=== PATIENT | female | born 1955 | race Caucasian/White ===

== ENCOUNTER 2020-02-29 14:45 | Day surgery (SDC) | payer BC ==
[~2020-02-29 14:45] MED LIST: ceFAZolin 2 GM/D5W 50 ML IV BAG (J0690 PER 500MG) As Ordered ONE
[2020-02-29] MEDS ORDERED: fentaNYL 250 MCG/5 ML INJECTION (J3010) As Ordered ONE (18:34)
[2020-02-29] MEDS ORDERED: MIDAZOLAM INJ 2MG/2ML VIAL (J2250 PER 1MG) As Ordered ONE (18:34)
[2020-02-29] MEDS ORDERED: LIDOCAINE 2% 100MG/5ML SDV (FOR ANES.) As Ordered ONE (18:34)
[2020-02-29] MEDS ORDERED: ROCURONIUM BROMIDE 50 MG/5 ML VIAL As Ordered ONE (18:34)
[2020-02-29] MEDS ORDERED: propofoL 200 MG/20 ML VIAL As Ordered ONE (18:34)
[2020-02-29] MEDS ORDERED: BUPIVACAINE HCL 0.5% 30 ML VIAL As Ordered ONE (18:51)
[2020-02-29] MEDS ORDERED: ONDANSETRON 4MG/2ML VIAL As Ordered ONE (20:06)
[2020-02-29] MEDS ORDERED: KETOROLAC 60MG 2ML VIAL As Ordered ONE (20:06)
[2020-02-29] MEDS ORDERED: dexameTHASONE 4 MG/ML 1ML VIAL (J1100 PER 1MG) As Ordered ONE (20:06)
[2020-02-29] MEDS ORDERED: ACETAMINOPHEN 1000MG 100ML IV BTL (OFIRMEV) (J0131 PER 10MG) As Ordered ONE (20:06)
[2020-02-29] MEDS ORDERED: fentaNYL 100 MCG/2 ML INJECTION (J3010) As Ordered ONE (22:07)
[2020-02-29] MEDS ORDERED: SUGAMMADEX SODIUM 500 MG/5 ML VIAL (BRIDION) As Ordered ONE (22:15)
[2020-02-29] MEDS ORDERED: ceFAZolin 2 GM/D5W 50 ML IV BAG (J0690 PER 500MG) As Ordered ONE (22:52)
[2020-02-29] MEDS ORDERED: DESFLURANE 240 ML INHALANT As Ordered ONE (22:58)
[2020-03-01] MEDS ORDERED: ONDANSETRON 4MG/2ML VIAL ONE (01:08)
[2020-03-01] MEDS ORDERED: fentaNYL 100 MCG/2 ML INJECTION (J3010) As Ordered ONE (01:08)
[2020-03-01] MEDS ORDERED: fentaNYL 100 MCG/2 ML INJECTION (J3010) ONE (01:08)
[2020-03-01] MEDS ORDERED: ONDANSETRON 4MG/2ML VIAL As Ordered ONE (01:55)
[2020-03-01] MEDS ORDERED: NORCO, ANEXSIA 5/325MG TABLET (HYDROcodone/ACETAMINOPHEN) As Ordered ONE ×3 (03:43→08:16)
[2020-03-01] MEDS ORDERED: NORCO, ANEXSIA 5/325MG TABLET (HYDROcodone/ACETAMINOPHEN) ONE (03:43)
[2020-03-01] MEDS ORDERED: ceFAZolin 2 GM/D5W 50 ML IV BAG (J0690 PER 500MG) As Ordered ONE (06:36)
[2020-03-01] MEDS ORDERED: ceFAZolin 2 GM/D5W 50 ML IV BAG (J0690 PER 500MG) ONE (06:36)
--- NOTE | 2020-04-09 11:43 | REP ---
C-ARM VIEWS LEFT ELBOW HISTORY: Fracture. TECHNIQUE: Multiple C-arm views left elbow performed. FINDINGS: Fracture of the olecranon is noted. There is placement of a metallic plate and multiple screws at that location for fracture fixation. On the final images, the osseous structures appear well-aligned. Fluoroscopy time 11 minutes 18 seconds. [facility]
--- NOTE | 2020-04-09 11:44 | REP ---
LEFT ELBOW SERIES: 3-VIEWS FINDINGS: 3-views of the left elbow are performed following placement of metallic internal fixation in the olecranon for a fracture. Metallic plate and screws are visualized as well as a pin. The osseous structures are well-aligned. MTDD
--- NOTE | 2020-05-14 08:13 | RO ---
DATE OF OPERATION: 02/29/2020 PREOPERATIVE DIAGNOSIS: Displaced left olecranon fracture. POSTOPERATIVE DIAGNOSIS: Displaced left olecranon fracture. PROCEDURE: Open reduction and internal fixation, left olecranon. SURGEON: Ilan Barkley M.D. GRINDER DRESSER: Carlee White M.D. ANESTHESIA: General. IV FLUIDS: Lactated Ringer's. ESTIMATED BLOOD LOSS: 50 mL IMPLANTS: [employer] variable-angle 2.7 mm LCP olecranon plate with both cortical and locking screws as well as a K-wire x1 CLOSURE: Nylon. DESCRIPTION OF PROCEDURE: The patient was identified in the preoperative holding area and the left am was marked. She was brought to the operating room, placed supine on a well-padded OR table. General anesthesia was included. She was placed into the right-side down lateral decubitus position and all bony prominences were well-padded. Bilateral SCDs for DVT prophylaxis. She received appropriate IV antibiotics within one hour of incision. A prescrub with chlorhexidine was performed to the left arm after the splint was removed. The left arm was then prepped in the normal sterile fashion. Prior to the incision, a timeout perform per hospital protocol. Again, she received appropriate antibiotics within one hour of incision. A large nonsterile bump had been placed under the drapes prior to that draping to support the arm and keep the elbow flexed. So after the timeout, bony landmarks were marked out. Dr. White was present the entire procedure and participated in all essential portions of the procedure. This required two skill surgeons. This case was not possible with a registered mental health assistant or with a PA. This required two skilled orthopedic surgeons due to the high degree of comminution and extremely poor bone quality. So the left arm was exsanguinated with an Esmarch bandage. Sterile tourniquet had been applied and the tourniquet inflated to 250 mmHg. A longitudinal incision that curved around the olecranon was made with a 15 blade. Subcutaneous dissection with the fresh 15 blade and Metzenbaum scissors to expose the olecranon fracture site. A fresh 15 blade used to clear periosteum out of the fracture. Medial and lateral flaps were raised. Distally, the intact ulnar shaft was exposed. Interval between EC U and FCU was incised with electrocautery. At this point inspection of the fracture site revealed a profound comminution much worse than had been apparent on the x-rays. This was an intra-articular fracture. Provisional reduction was obtained with pointed reduction forceps and K-wires placed. Multiple fracture fragments of the far ulnar cortex were left in place rather than excised. C-arm was then used to obtain x-rays showing an adequate reduction. This was an extremely hard fracture to reduce. Variable angle locking plate from [employer] was selected. This was placed on the proximal ulna. We did not split the triceps insertion to get the plate to fit appropriately. There was a longitudinal split. The palate was then secured to the bone distally with a 2.7 metaphyseal screw. Proximally, a homerun screw was placed. This was a locking screw. However, it would not lock into the plate. The reduction was then adjusted and K-wires were repositioned. Additional cortical screws placed distally and proximally, two additional locking screws placed. X-rays taken with a C-arm showed an excellent reduction. When removing the K-wire, unfortunately, the proximal fragment that had the articular surface attached to it completely displaced. The orientation of this fracture was such that we were having difficulty getting any significant fixation into that main piece and there were probably about seven main fracture fragments. At this point, all proximal screws were removed and pointed reduction forceps were again used to re-reduce the fracture and multiple K-wires were placed. We were able to obtain an excellent reduction and then a cortical screw was placed at the most proximal screw hole and although that was a locking screw and that hole had not been used prior, the screw would not locked in but still had good fixation. Additional homerun screws were placed. However they were mostly going through comminution. They had good fixation. At this point, we had a very well reduced fracture with only modest fixation. It was determined that keeping one of rhe K- wires was going to be absolutely mandatory in order for this fracture to have a chance to heal. So the tourniquet had been let down at this point, hemostasis with electrocautery. Everything was extensively irrigated. Her antibiotics were redosed at four hours. We were now at this point very pleased with the reduction. The reason this required two skilled surgeons it was very difficult to obtain and maintain the reduction and then to place the screws and hardware required a second surgeon. there was very complex intraoperative decision-making being performed throughout the case that could not have been performed by a physician mri assistant. So at this, I then used #2 FiberWire to repair the triceps split in a [id number] fashion. I then placed two 0 FiberWire in a horizontal mattress fashion through triceps tendon and then that was also placed through several small holes in the plate and then I was able to repair triceps to the plate via those holes and knots were tied by hand. This was performed twice. I then took the elbow through a range of motion basically from 45 to 100 degrees and there was no displacement. The K-wire was then bent and cut. Repeat final C- arm images showed a very well-reduced olecranon fracture with well-positioned hardware. The fascia distally was then closed with 2-0 Vicryl and then the remainder of the incision was reirrigated and closed with 2-0 Vicryl and horizontal mattress sutures of 3-0 nylon. We carefully sutured the skin around the K-wire to minimize the risk of skin breakdown. A bulky sterile dressing was applied. There was no significant swelling of the forearm. She was then carefully placed into a well-padded long arm splint. All counts correct x2. Complications: None She was extubated, transferred to the PACU in stable condition. YAHAIRA
== END 2020-03-01 08:00 | disposition home or self-care (01) ==
LOC: M SDC 14:45
PROVIDERS: ATTEND Orthopaedic Surgery
DX: S52.022A Displaced fracture of olecranon process without intraarticular extension of left ulna, initial encounter for closed fracture (principal); X58.XXXA Exposure to other specified factors, initial encounter; Y92.89 Other specified places as the place of occurrence of the external cause; Y93.9 Activity, unspecified; Y99.9 Unspecified external cause status; E03.9 Hypothyroidism, unspecified; Z79.899 Other long term (current) drug therapy
CPT/HCPCS: 24685; 73070; 73080; C1713; J0131; J0690; J1100; J2250; J2405; J3010; U0002

== ENCOUNTER → 2020-03-19 | Outpatient (CLI) | payer BC | LOC: M PLALAB 15:07 | PROVIDERS: ATTEND Internal Medicine Endocrinology, Diabetes & Metabolism | DX: E55.9 Vitamin D deficiency, unspecified (principal) ==